=== PATIENT | female | born 1995 | race Caucasian/White ===

== ENCOUNTER 2017-04-08 03:41 | Emergency (ER) | payer OTHER ==
[~2017-04-08] VITALS: Ht 165.1 cm; Wt 70.0 kg
[2017-04-08 03:42] VITALS: BP 126/83
[2017-04-08] MEDS ORDERED: ONDANSETRON 2MG/ML, 2ML ONE (04:15)
[2017-04-08] MEDS ORDERED: SODIUM CHLORIDE 0.9% 1,000ML IVBOLUS ONE (04:30)
[2017-04-08] MEDS ORDERED: SODIUM CHLORIDE FLUSH 10ML SYR IVF ONE (04:30)
[2017-04-08] MEDS ORDERED: ONDANSETRON 2MG/ML, 2ML IVPush ONE (04:30)
[2017-04-08] MEDS ORDERED: ONDANSETRON ODT 8 MG ONE (04:35)
[2017-04-08] MEDS ORDERED: ONDANSETRON ODT 8 MG PO ONE (05:00)
== END 2017-04-08 05:23 | disposition home or self-care (01) ==
LOC: ED 05:10
DX: F10.129 Alcohol abuse with intoxication, unspecified (principal)
CPT/HCPCS: 99283; Q0162